=== PATIENT | female | born 1985 | race Caucasian/White ===

== ENCOUNTER 2016-10-17 11:28 | Outpatient (CLI) | payer OTHER ==
[~2016-10-17] VITALS: Ht 162.6 cm; Wt 74.8 kg
[~2016-10-17 11:28] MED LIST: METO10TA92 PO; NITR-58 PO; PREN1TAB79 PO
[2016-10-17 11:35] VITALS: Ht 162.6 cm; Wt 74.8 kg
--- NOTE | 2016-10-17 12:26 | RADRPT ---
PROCEDURE: OB ultrasound for biophysical profile CLINICAL INDICATION: Decreased movement TECHNIQUE: Multiple sonographic images of the pelvis were obtained. Transabdominal views of the g ravid uterus are available for review. The images were reviewed on a PACS workstation. COMPARISON: None FINDINGS: breathing movement = 2/2 tone = 2/2 motion = 2/2 MICHELLE = 2/2 MICHELLE = 17.4 cm Single live intrauterine with cardiac activity of 150 bpm. position is breech . The placenta is anterior. IMPRESSION: 1. Single live intrauterine gestation. 2. Biophysical profile = 8/8. 3. MICHELLE = 17.4 cm. 4. Breech presentation. RPTAT: HH .Liza Granado MD, Date Time Electronically viewed and signed by .Liza Granado MD, on 10/17/2016 12:26 .G/
== END 2016-10-17 12:45 | disposition home or self-care (01) ==
LOC: OBT 11:28 → L-D 11:28 → OBT 12:45
PROVIDERS: ATTEND Specialist
DX: O36.8130 Decreased fetal movements, third trimester, not applicable or unspecified (principal); Z3A.00 Weeks of gestation of pregnancy not specified
CPT/HCPCS: 76818; Z7500; G0463

== ENCOUNTER 2016-12-03 14:10 | Outpatient (CLI) | payer OTHER ==
[~2016-12-03] VITALS: Ht 162.6 cm; Wt 77.7 kg
[~2016-12-03 14:10] MED LIST changes: -METO10TA92 PO; -NITR-58 PO
[2016-12-03 14:25] VITALS: Ht 162.6 cm; Wt 77.7 kg
--- NOTE | 2016-12-03 16:23 | RADRPT ---
PROCEDURE: OB ultrasound for biophysical profile CLINICAL INDICATION: Vaginal bleeding TECHNIQUE: Multiple sonographic images of the pelvis were obtained. Transabdominal views of the g ravid uterus are available for review. The images were reviewed on a PACS workstation. COMPARISON: None FINDINGS: breathing movement = 2/2 tone = 2/2 motion = 2/2 MICHELLE = 2/2 MICHELLE = 13.2 cm Single live intrauterine with cardiac activity of 157 bpm. position is cephal ic. The placenta is anterior. IMPRESSION: 1. Single live intrauterine gestation. 2. Biophysical profile = 8/8. 3. MICHELLE = 13.2 cm. RPTAT: HH .Liza Granado MD, MD Date Time Electronically viewed and signed by .Liza Granado MD, on 12/03/2016 16:23 .G/
--- NOTE | 2016-12-03 19:42 | QN ---
Documentation Comment 31-year-old with IUP at 39 weeks and 5 days was seen today for OB visit in office and had vaginal exam. Patient reports feeling with after she had been examined as well as had some spotting. She denies any decreased movement. Antepartum course was uncomplicated. Sterile speculum examination: Negative pulling, scant amount of blood noted in the cervix. NST: Category 1 reactive Vaginal exam 1/closed/long next Blood group: O+ No evidence of placenta previa or abruption Placenta anterior PROCEDURE: OB ultrasound for biophysical profile CLINICAL INDICATION: Vaginal bleeding TECHNIQUE: Multiple sonographic images of the pelvis were obtained. Transabdominal views of the gravid uterus are available for review. The images were reviewed on a PACS workstation. COMPARISON: None FINDINGS: breathing movement = 2/2 tone = 2/2 motion = 2/2 MICHELLE = 2/2 MICHELLE = 13.2 cm Single live intrauterine with cardiac activity of 157 bpm. position is cephalic. The placenta is anterior. IMPRESSION: 1. Single live intrauterine gestation. 2. Biophysical profile = 8/8. 3. MICHELLE = 13.2 cm. RPTAT: HH Patient had been observed and during observation, no cervical change noted Patient was comfortable. DC home Follow-up with OB office in a couple of days Return to triage if she has any decreased movement, uterine contractions, leaking of fluid, vaginal bleeding or for any other concerns. Next Patient verbalized understanding. BIN SIMENTAL MD Dec 03, 2016 19:42
== END 2016-12-03 17:25 | disposition home or self-care (01) ==
LOC: OBT 14:10 → L-D 14:11 → OBT 17:25
PROVIDERS: ATTEND Specialist
DX: O46.93 Antepartum hemorrhage, unspecified, third trimester (principal); Z3A.39 39 weeks gestation of pregnancy
CPT/HCPCS: 76818; Z7500; G0463

== ENCOUNTER 2016-12-08 04:33 | Inpatient (IN) | payer OTHER ==
[~2016-12-08] VITALS: Ht 162.6 cm; Wt 77.5 kg
[2016-12-08 04:40] VITALS: Ht 162.6 cm; Wt 77.5 kg
[2016-12-08 04:41] VITALS: BP 109/76; PULSE 81; RESP 18
[2016-12-08] MEDS ORDERED: LACTATED RINGER'S 1,000 ML IV SCH (05:58)
[2016-12-08] MEDS ORDERED: OXYTOCIN 30 UNITS/LR 500 ML IV SCH ×3 (06:00→07:30)
[2016-12-08] MEDS ORDERED: MISOPROSTOL 200 MCG TAB PR PRN ×2 (06:00→14:00)
[2016-12-08] MEDS ORDERED: IBUPROFEN 600 MG TAB PO PRN (06:00)
[2016-12-08] MEDS ORDERED: METHYLERGONOVINE 0.2 MG INJ IM PRN ×2 (06:00→14:00)
[2016-12-08] MEDS ORDERED: ACETAMINOPHEN/CODEINE #3 TAB PO PRN ×3 (06:00→14:00)
[2016-12-08] MEDS ORDERED: LACTATED RINGER'S 1,000 ML IV PRN (06:00)
[2016-12-08] MEDS ORDERED: BUTORPHANOL 2 MG INJ IV PRN ×2 (06:00)
[2016-12-08] MEDS ORDERED: CARBOPROST 250 MCG INJ IM PRN ×2 (06:00→14:00)
[2016-12-08] MEDS ORDERED: LIDOCAINE 1% (MPF) 30 ML INJ INJ PRN (06:00)
[2016-12-08] MEDS ORDERED: OXYTOCIN 30 UNITS/LR 500 ML IV PRN ×2 (06:00→14:00)
[2016-12-08] MEDS: LACTATED RINGER'S 1,000 ML IV SCH ×3 (06:09→08:31)
[2016-12-08 07:01] LABS: ADD SCAN DIFF NO
[2016-12-08 07:18] LABS: BASOPHILS % 0.1 % (0.0-2.0); EOSINOPHILS % 0.3 % (0.0-7.0); HEMATOCRIT 39.8 % (37.0-47.0); HEMOGLOBIN 13.3 g/dl (12.0-16.0); LYMPHOCYTES # 2.2 10^3/ul (0.8-2.9); LYMPHOCYTES % 25.3 % (15.0-51.0); MEAN CORPUSCULAR HEMOGLOBIN 31.4 pg (29.0-33.0); MEAN CORPUSCULAR HGB CONC 33.4 g/dl (32.0-37.0); MEAN CORPUSCULAR VOLUME 93.9 fl (82.0-101.0); MEAN PLATELET VOLUME 11.7 fl (7.4-10.4); MONOCYTE # 0.6 10^3/ul (0.3-0.9); MONOCYTES % 6.5 % (0.0-11.0); NEUTROPHIL # 5.8 10^3/ul (1.6-7.5); NEUTROPHILS % 67.2 % (39.0-77.0); PLATELET COUNT 156 10^3/UL (140-415); RED BLOOD COUNT 4.24 10^6/ul (4.20-5.40); RED CELL DISTRIBUTION WIDTH 12.9 % (11.5-14.5); WHITE BLOOD COUNT 8.7 10^3/ul (4.8-10.8)
--- NOTE | 2016-12-08 07:40 | HP ---
Date/Time of Note Date/Time of Note DATE: 12/08/16 TIME: 07:36 OB - History Hx of Present Free Text/Dictation admitted with irregular contractions since early this morning.Passed water per vagina. Last Menstrual Period: Feb 28, 2016 Estimated Due Date: Dec 05, 2016 : 2 Para: 1 Spontaneous : 0 Therapeutic : 0 Care: Good Care Ultrasounds: Normal mid trimester US Obstetrical Complications: None Medical Complications: None Other Concerns: Uterine fibroid Past Family/Social History * Past Medical, Surgical, Family and Obstetric Histories reviewed from chart. Blood Type: O+ Rubella: immune RPR/VDRL: Negative GBS Status: Negative HBsAG: Negative OB Admission Exam Vital Signs Vital Signs Vital Signs Date Time Temp Pulse Resp B/P Pulse Ox O2 Delivery O2 Flow Rate FiO2 12/08/16 04:41 98.6 81 18 109/76 Room Air Last 72 hours Lab Results CBC & BMP 12/08/16 06:20 AMBAR HARRINGTON MD Dec 08, 2016 07:39
[2016-12-08 07:41] LABS: INR 0.92; PROTIME 12.4 Sec (12.2-14.2)
[2016-12-08 07:42] LABS: PARTIAL THROMBOPLASTIN TIME 24.2 Sec (25.0-35.0)
[2016-12-08] MEDS ORDERED: FENTAnyl 2MCG/ML-ROPIV 0.2% 100 ML ONE (08:25)
[2016-12-08] MEDS ORDERED: ONDANSETRON 4 MG INJ IV PRN ×2 (09:00→14:00)
[2016-12-08] MEDS ORDERED: KETOROLAC 30 MG INJ IV PRN (09:00)
[2016-12-08] MEDS ORDERED: FENTAnyl 2MCG/ML-ROPIV 0.2% 100 ML BAG EPI SCH (09:00)
[2016-12-08] MEDS ORDERED: morphine 2 MG INJ IV PRN ×2 (09:00)
[2016-12-08] MEDS ORDERED: DIPHENHYDRAMINE 50 MG INJ IV PRN (09:00)
[2016-12-08] MEDS ORDERED: NALOXONE (0.4 MG/ML) INJ IV PRN (09:00)
[2016-12-08] MEDS ORDERED: MINERAL OIL LIGHT 10 ML VIAL TOP ONE (10:00)
--- NOTE | 2016-12-08 13:48 | LDN ---
Date/Time of Note Date/Time of Note DATE: 12/08/16 TIME: 13:47 Delivery Summary Normal vaginal delivery Placenta Delivered: Spontaneously Meconium: Light Perineum intact?: Yes Perineal laceration: 1 Anesthesia type: Epidural Estimated blood loss: 200 Sponge & Needle done & correct: Yes All needle counts correct: Yes Any foreign bodies felt in the: No Problems: AMBAR HARRINGTON MD Dec 08, 2016 13:48
[2016-12-08] MEDS ORDERED: ONDANSETRON 4 MG TAB PO PRN (14:00)
[2016-12-08] MEDS ORDERED: ZOLPIDEM 5 MG TAB PO PRN (14:00)
[2016-12-08] MEDS ORDERED: DIPHENHYDRAMINE 25 MG CAP PO PRN (14:00)
[2016-12-08] MEDS ORDERED: BENZOCAINE 20% 56 ML SPRAY TOP PRN (14:00)
[2016-12-08] MEDS ORDERED: ACETAMINOPHEN 325 MG TAB PO PRN ×2 (14:00)
[2016-12-08] MEDS: OXYTOCIN 30 UNITS/LR 500 ML IV SCH ×4 (14:00→21:07)
[2016-12-08] MEDS ORDERED: DIBUCAINE 1% 30 GM OINT PR PRN (14:00)
[2016-12-08] MEDS ORDERED: WITCH HAZEL/GLYCERIN PAD PR PRN (14:00)
[2016-12-08] MEDS ORDERED: NA PHOSPHATE/BIPHOS 133 ML ENEMA PR PRN (14:00)
[2016-12-08 16:00] VITALS: BP 119/72; PULSE 80; RESP 18
[2016-12-08] MEDS: IBUPROFEN 800 MG TAB PO SCH ×2 (17:38→23:53)
[2016-12-08 19:50] VITALS: BP 113/74; PULSE 75; RESP 17
[2016-12-08] MEDS: MAGNESIUM HYDROXIDE 30ML CUP PO SCH (21:07)
[2016-12-09 04:48] VITALS: BP 98/63; PULSE 72; RESP 18
[2016-12-09] MEDS: IBUPROFEN 800 MG TAB PO SCH ×4 (05:52→23:39)
[2016-12-09 07:52] LABS: ADD SCAN DIFF NO
[2016-12-09 07:58] LABS: BASOPHILS % 0.1 % (0.0-2.0); EOSINOPHILS # 0.1 10^3/ul (0.0-0.5); EOSINOPHILS % 0.6 % (0.0-7.0); HEMATOCRIT 39.6 % (37.0-47.0); HEMOGLOBIN 13.6 g/dl (12.0-16.0); LYMPHOCYTES % 21.6 % (15.0-51.0); MEAN CORPUSCULAR HEMOGLOBIN 32.2 pg (29.0-33.0); MEAN CORPUSCULAR HGB CONC 34.3 g/dl (32.0-37.0); MEAN CORPUSCULAR VOLUME 93.6 fl (82.0-101.0); MEAN PLATELET VOLUME 11.6 fl (7.4-10.4); MONOCYTE # 0.4 10^3/ul (0.3-0.9); MONOCYTES % 4.6 % (0.0-11.0); NEUTROPHIL # 6.6 10^3/ul (1.6-7.5); NEUTROPHILS % 72.7 % (39.0-77.0); PLATELET COUNT 142 10^3/UL (140-415); RED BLOOD COUNT 4.23 10^6/ul (4.20-5.40); RED CELL DISTRIBUTION WIDTH 12.7 % (11.5-14.5); WHITE BLOOD COUNT 9.1 10^3/ul (4.8-10.8)
[2016-12-09 08:00] VITALS: BP 88/50; PULSE 72; RESP 16
[2016-12-09] MEDS ORDERED: INFLUENZA VIRUS VACCINE 0.5 ML (DISPENSING) IM* ONE (09:00)
[2016-12-09] MEDS: MAGNESIUM HYDROXIDE 30ML CUP PO SCH ×2 (09:01→21:32)
--- NOTE | 2016-12-09 13:53 | PN ---
Date/Time of Note Date/Time of Note DATE: 12/09/16 TIME: 13:48 OB Subjective Subjective Subjective no c/o no bowel movement yet OB Objective Objective Objective vss afebrile fundus firm lochia min ext neg for tenderness OB Assessment/Plan Other Assessment: stable post #1 normal vaginal delivery Other plan: discharge home in am MARIANNE FLOWERS MD Dec 09, 2016 13:53
[2016-12-09 15:30] VITALS: BP 97/63; PULSE 77; RESP 16
[2016-12-09 20:15] VITALS: BP 116/82; PULSE 91; RESP 17
[2016-12-10 04:00] VITALS: BP 103/59; PULSE 75; RESP 17
[2016-12-10] MEDS: IBUPROFEN 800 MG TAB PO SCH ×3 (05:44→18:06)
--- NOTE | 2016-12-10 07:44 | PD.PPDC ---
[employer] Discharge Instruction Diagnosis Final Diagnosis: Term .NVD Condition Patient Condition: Good Diet Diet: Resume Regular Diet Activity/Restrictions Activity: Normal Activity May Shower Restrictions: No Sexual Activity Nothing in the Vagina No [place]elope Wound/Drain Care Instructions Wound/Drain Care Instructions: Keep clean and dry Follow-up Follow-up with Physician: 2, Week/Weeks Return to clinic for [facility]ULLER Instructions: Fever greater than 101 Worsening abdominal pain More than 2 pads per hour Unable to tolerate diet OB Instructions: Depression Headache Surgical Instructions: Incisional Redness AMBAR HARRINGTON MD Dec 10, 2016 07:44
[2016-12-10 08:00] VITALS: BP 103/62; PULSE 76; RESP 18
[2016-12-10] MEDS: MAGNESIUM HYDROXIDE 30ML CUP PO SCH (08:51)
[2016-12-10] MEDS ORDERED: DIPHTH/TET/ACEL PERTUSS (ADULT) 0.5 ML VIAL IM* ONE (09:00)
[2016-12-10] MEDS ORDERED: MEASLES,MUMPS,RUBELLA VACCINE INJ SC* ONE (09:00)
[2016-12-10 16:00] VITALS: BP 92/56; PULSE 82; RESP 18
== END 2016-12-10 18:33 | disposition home or self-care (01) | DRG 775 ==
LOC: OBT 04:33 → L-D 04:34 → OBT 06:00 → L-D 06:00 → PP1 16:01
PROVIDERS: ADMIT Specialist; ATTEND Specialist
PROC: 10E0XZZ Delivery of Products of Conception, External Approach (ICD-10-PCS; principal; 2016-12-08)
PROC: 0HQ9XZZ Repair Perineum Skin, External Approach (ICD-10-PCS; 2016-12-08)
PROC: 3E0234Z Introduction of Serum, Toxoid and Vaccine into Muscle, Percutaneous Approach (ICD-10-PCS; 2016-12-09)
PROC: 3E0234Z Introduction of Serum, Toxoid and Vaccine into Muscle, Percutaneous Approach (ICD-10-PCS; 2016-12-10)
DX: O48.0 Post-term pregnancy (principal); O70.0 First degree perineal laceration during delivery; Z23 Encounter for immunization; Z3A.40 40 weeks gestation of pregnancy; Z37.0 Single live birth
CPT/HCPCS: 36415; 62319; 84112; 85025; 85610; 85730; 86592; 86900; 86901; 87340; 90686; 90715; G0463; J2405; J2590; J3010; J7120